=== PATIENT | female | born 1980 | race Caucasian/White ===

== ENCOUNTER 2017-12-20 14:41 | Emergency (ER) | payer MEDICAID ==
[~2017-12-20] VITALS: Ht 162.6 cm; Wt 55.0 kg
[2017-12-20] MEDS ORDERED: TETANUS, DIPHTHERIA, PERTUSSIS VAC/PF 0.5ML (>7YR OLD) IM ONE (16:30)
[2017-12-20] MEDS ORDERED: ACETAMINOPHEN 325MG TABLET PO ONE (16:30)
[2017-12-20] MEDS ORDERED: LIDOCAINE HCL 1% 20ML VIAL (Pyxis) INJ MC ONE (16:30)
[2017-12-20] MEDS ORDERED: BACITRACIN ZINC OINT UDPKT TOP ONE ×2 (16:30→17:30)
[2017-12-20] MEDS ORDERED: LIDOCAINE HCL/PF 1% 10 MG/ML 5ML VIAL IJ ONE (16:45)
[2017-12-20 17:20] VITALS: BP 109/64
== END 2017-12-20 17:29 | disposition home or self-care (01) ==
LOC: ER 14:41
DX: S51.812A Laceration without foreign body of left forearm, initial encounter (principal); F17.200 Nicotine dependence, unspecified, uncomplicated; W25.XXXA Contact with sharp glass, initial encounter; Y93.89 Activity, other specified; Y92.9 Unspecified place or not applicable
CPT/HCPCS: 12002; 73090; 81025; 90471; 90715; 99284; J3490; Z7610

== ENCOUNTER 2017-12-23 18:51 | Emergency (ER) | payer MEDICAID ==
[~2017-12-23] VITALS: Ht 172.7 cm; Wt 50.0 kg
[2017-12-24 03:15] VITALS: BP 112/65
== END 2017-12-23 22:18 | disposition left against medical advice (07) ==
LOC: ER 18:51
DX: S51.812D Laceration without foreign body of left forearm, subsequent encounter (principal); F17.200 Nicotine dependence, unspecified, uncomplicated; F12.10 Cannabis abuse, uncomplicated; X58.XXXD Exposure to other specified factors, subsequent encounter
CPT/HCPCS: 99281

== ENCOUNTER 2018-01-06 09:11 | Emergency (ER) | payer MEDICAID ==
[~2018-01-06] VITALS: Ht 172.7 cm; Wt 58.0 kg
[2018-01-06 11:56] VITALS: BP 118/59
== END 2018-01-06 12:05 | disposition home or self-care (01) ==
LOC: ER 10:50
DX: Z48.02 Encounter for removal of sutures (principal)
CPT/HCPCS: 99281; Z7610